=== PATIENT | female | born 1985 | race Caucasian/White ===

== ENCOUNTER 2023-09-14 11:57 | Outpatient (CLI) | payer MEDICAID | END 2023-09-14 23:59 | disposition home or self-care (01) | LOC: RAD 11:57 | PROVIDERS: ATTEND Obstetrics & Gynecology | DX: Z34.92 Encounter for supervision of normal pregnancy, unspecified, second trimester (principal); Z3A.21 21 weeks gestation of pregnancy | CPT/HCPCS: 76811 ==